=== PATIENT | male | born 1955 | race American Indian/Alaskan Native ===

== ENCOUNTER 2020-11-04 14:35 | Emergency (ER) | payer BC, OTHER ==
[2020-11-04] MEDS: Glucagon,Human Recombinant 1 MG Vial IVPUSH ONE (15:20)
[2020-11-04] MEDS ORDERED: Glucagon,Human Recombinant 1 MG Vial ONE (15:22)
--- NOTE | 2020-11-04 15:47 | EDM.PDOC ---
ED HPI GENERAL MEDICAL PROBLEM - General Chief Complaint: Gastrointestinal Problem Stated Complaint: CAN'T BREATHE, IS ON OXYGEN Time Seen by Provider: 11/04/20 15:10 Source of Information: Reports: Patient, RN, RN Notes Reviewed History Limitations: Reports: No Limitations - History of Present Illness INITIAL COMMENTS - FREE TEXT/NARRATIVE: Patient presents to the ED via personal vehicle with complaints of feeling of food bolus impaction. The patient states he was eating at a local [employer] restaurant earlier today and did not fully chew a piece of food which then became lodged in his throat. He states he tried vomiting several times but the feeling of food impaction remains in his throat. He denies loss of consciousness during the event. He has not experienced this feeling before. He has taken no medications for this problem. Patient has a history of fibrotic lung disease and is on 2L of home O2 via [place] at baseline; he is not requiring an increase in oxygen. Throat Pain Score (Numeric/FACES): 5 - Related Data Allergies Allergy/AdvReac Type Severity Reaction Status Date / Time No Known Allergies Allergy Verified 11/04/20 14:50 Home Meds: Home Meds . [Unable to Verify Home Med List] 11/04/20 [History] Past Medical History HEENT History: Reports: Hard of Hearing Cardiovascular History: Reports: Hypertension, Stents Respiratory History: Reports: Pneumonia, Recurrent, Other (See Below) Other Respiratory History: pulmonary fibrosis idopathic Gastrointestinal History: Reports: GERD Genitourinary History: Reports: None Musculoskeletal History: Reports: None Neurological History: Reports: Neuropathy, Diabetic Psychiatric History: Reports: Anxiety Endocrine/Metabolic History: Reports: Diabetes, Type I, Obesity/BMI 30+ Hematologic History: Reports: None Immunologic History: Reports: None Oncologic (Cancer) History: Reports: None Dermatologic History: Reports: None - Infectious Disease History Infectious Disease History: Reports: Novel Coronavirus - Past Surgical History Head Surgeries/Procedures: Reports: None Social & Family History - Family History Family Medical History: No Pertinent Family History - Tobacco Use Tobacco Use Status *Q: Never Tobacco User Second Hand Smoke Exposure: No - Recreational Drug Use Recreational Drug Use: No ED ROS ENT - Review of Systems Review Of Systems: Comprehensive ROS is negative, except as noted in HPI. ED EXAM, ENT - Physical Exam Exam: See Below Exam Limited By: No Limitations General Appearance: Alert, WD/WN, No Apparent Distress Eye Exam: Bilateral Eye: EOMI, Normal Inspection, PERRL (4mm) Mouth/Throat: Normal Gums, Normal Lips, Normal Oropharynx, Normal Teeth, Throat Pain. No: Hoarse Voice, Muffled Voice, Pharyngeal Erythema, Tongue Swelling Head: Atraumatic, Normocephalic Neck: Supple, Non-Tender, Full Range of Motion. No: Lymphadenopathy (L), Lymphadenopathy (R) Respiratory/Chest: No Respiratory Distress, Lungs Clear, No Accessory Muscle Use, Chest Non-Tender, Wheezing (To right upper lobe), Other (On home O2 at baseline). No: Stridor Cardiovascular: Normal Peripheral Pulses, Regular Rate, Rhythm, No Edema, No Gallop, No JVD, No Murmur, No Rub GI/Abdominal: Normal Bowel Sounds, Soft, Non-Tender, No Distention, No Mass, Pelvis Stable Neurological: Alert, Oriented, CN II-XII Intact, Normal Cognition, No Motor/Sensory Deficits Psychiatric: Normal Affect, Normal Mood Skin: Warm, Dry, Intact, Normal Color, No Rash. No: Ecchymosis, Erythema, Mottled, Pallor, Petechiae Course - Vital Signs Last Recorded V/S: Last Vital Signs Temp 97.1 F 11/04/20 14:44 Pulse 74 11/04/20 14:44 Resp 18 11/04/20 14:44 BP 117/68 11/04/20 14:44 Pulse Ox 94 L 11/04/20 14:44 - Orders/Labs/Meds Meds: Medications Discontinued Medications Generic Name Dose Route Start Last Admin Trade Name Monster PRN Reason Stop Dose Admin Glucagon 1 mg 11/04/20 15:15 11/04/20 15:20 Glucagen IVPUSH 11/04/20 15:16 1 mg ONETIME ONE Administration Glucagon Confirm 11/04/20 15:22 Glucagen Administered 11/04/20 15:23 Dose 1 mg .ROUTE .STK-MED ONE Departure - Departure Time of Disposition: 15:47 Disposition: Home, Self-Care 01 Condition: Good Clinical Impression: Obstruction of esophagus due to food impaction - Discharge Information *PRESCRIPTION DRUG MONITORING PROGRAM REVIEWED*: Not Applicable *COPY OF PRESCRIPTION DRUG MONITORING REPORT IN PATIENT LALIT: Not Applicable Instructions: Swallowed Foreign Body, Adult, [id number] Forms: ED Department Discharge Additional Instructions: 1.) Drink plenty of water to stay hydrate. 2.) Focus on small bites of food while you are still not feeling well following COVID and pneumonia. 3.) Expect to have elevated blood sugars for the next 24 hours following the administration of Glucagon. Sepsis Event Note (ED) - Evaluation Sepsis Screening Result: No Definite Risk
== END 2020-11-04 16:03 | disposition home or self-care (01) ==
LOC: DL.ED 14:35
DX: K22.2 Esophageal obstruction (principal); E10.9 Type 1 diabetes mellitus without complications; I10 Essential (primary) hypertension; E66.9 Obesity, unspecified; Z68.35 Body mass index [BMI] 35.0-35.9, adult; Z95.5 Presence of coronary angioplasty implant and graft
CPT/HCPCS: 96374; 99283; 99283-25; J1610